=== PATIENT | female | born 1950 | race African-American/Black ===

== ENCOUNTER 2021-05-18 09:52 | Inpatient (IN) | payer MEDICARE, OTHER ==
[~2021-05-18] VITALS: Ht 175.3 cm; Wt 135.2 kg
[2021-05-18] MEDS ORDERED: FERR-20 PO (11:35)
[2021-05-18] MEDS ORDERED: CYCL-839 PO (11:36)
[2021-05-18] MEDS ORDERED: MECL25TA18 PO (11:37)
[2021-05-18] MEDS ORDERED: LORA-622 PO (11:38)
[2021-05-18] MEDS ORDERED: SIMV-8 PO (11:38)
[2021-05-18] MEDS ORDERED: AMLO-489 PO (11:39)
[2021-05-18] MEDS ORDERED: HYDR12.56 PO (11:40)
[2021-05-18] MEDS ORDERED: ERGO2000 PO (11:43)
[2021-05-18] MEDS ORDERED: METH2.5T PO (11:44)
[2021-05-18] MEDS ORDERED: LOSA-69 PO (11:45)
[2021-05-18] MEDS ORDERED: METF-370 PO (11:46)
[2021-05-18] MEDS ORDERED: HYDR-4188 PO (11:47)
[2021-05-18] MEDS ORDERED: LEVO50TA7 PO (11:48)
[2021-05-18] MEDS ORDERED: DICL50TA4 PO (11:49)
[2021-05-18] MEDS ORDERED: ONDANSETRON HCL 4 MG/2 ML VIAL IV ONE (13:15)
[2021-05-18] MEDS ORDERED: HYDROmorphone HCL 2 MG/ML VL IV ONE (13:15)
[2021-05-18 13:33] LABS: Basophils # (auto) 0.1 10 ^3/uL (0-0.2); Basophils % (auto) 0.4 % (0.0-2.0); Eosinophils # (auto) 0 10 ^3/uL (0-0.8); Eosinophils % (auto) 0.1 % (0.0-7.0); Hematocrit 35.9 % (36.0-46.0); Lymphocytes # (auto) 1.1 10 ^3/uL (0.4-5.4); Lymphocytes % (auto) 8.4 % (10.0-50.0); Mean Corpuscular Hemoglobin 29.9 pg (28.0-32.0); Mean Corpuscular Hgb Conc. 33.6 g/dL (32.0-36.0); Mean Corpuscular Volume 89.1 fL (80.0-100.0); Monocytes # (auto) 1.1 10 ^3/uL (0-1.3); Neutrophils # (auto) 10.4 10 ^3/uL (1.6-8.6); Neutrophils % (auto) 82.1 % (37.0-80.0); Red Blood Cells 4.03 10^6/uL (4.0-5.20); Red Cell Distribution Width 16.1 % (11.8-14.3); White Blood Cell 12.7 10^3/uL (4.4-10.8)
[2021-05-18 13:44] LABS: Albumin 2.8 g/dL (3.4-5.0); Calcium 9.4 mg/dL (8.5-10.1)
[2021-05-18 13:52] LABS: BUN/Creatinine Ratio 30.1; Bilirubin, Total 0.8 mg/dL (0.2-1.0); Total Protein 8.6 g/dL (6.4-8.2)
[2021-05-18] MEDS ORDERED: METOPROLOL SUCCINATE XL 50 MG TAB PO ONE (17:00)
[2021-05-18] MEDS ORDERED: ENOXAPARIN SOD 100 MG/1 ML SYRINGE SC ONE (17:00)
[2021-05-18] MEDS ORDERED: cefTRIAXone 1GM/50ML D5W 50 ML IV ONE (17:00)
[2021-05-18] MEDS ORDERED: MORPHINE SULFATE INJECTION 2 MG/ML SYRG IV PRN ×2 (17:00→23:00)
[2021-05-18] MEDS ORDERED: NITROGLYCERIN 0.4 MG SL TAB SL PRN (17:00)
[2021-05-18 18:06] LABS: Urine Bacteria FEW /hpf (None Seen); Urine Blood 3+ /uL (Negative); Urine Specific Gravity 1.018 (1.001-1.035); Urine WBC 12 /hpf (0 - 5)
[2021-05-18 20:00] VITALS: BP 119/58
[2021-05-18] MEDS ORDERED: ACETAMINOPHEN 325 MG TAB PO PRN ×2 (22:00→23:00)
[2021-05-18] MEDS ORDERED: MORPHINE SULFATE INJECTION 2 MG/ML SYRG IM ONE (22:00)
[2021-05-18] MEDS ORDERED: PRED10TA PO (22:04)
[2021-05-18] MEDS ORDERED: MELO1TAB56 PO (22:04)
[2021-05-18] MEDS ORDERED: MORPHINE SULFATE INJECTION 2 MG/ML SYRG IV ONE (22:30)
[2021-05-18 23:00] VITALS: BP 128/58
[2021-05-18] MEDS ORDERED: ALBUTEROL SULF 2.5 MG/0.5ML(0.5%) NEB SOLN NEB ONE (23:00)
[2021-05-18] MEDS ORDERED: MONTELUKAST SODIUM 10 MG TAB PO ONE (23:00)
[2021-05-18] MEDS ORDERED: SUCRALFATE 1 GM/10 ML ORAL SUSP PO ONE (23:00)
[2021-05-18] MEDS ORDERED: IPRATROPIUM BROM 0.5 MG/2.5ML INH SOL NEB ONE (23:00)
[2021-05-18] MEDS ORDERED: LACTULOSE 20Gm/30ML SOLN PO PRN (23:00)
[2021-05-18] MEDS ORDERED: PANTOPRAZOLE 40 MG/10 ML VIAL INJ IV ONE (23:00)
[2021-05-18] MEDS ORDERED: MULTIPLE VITAMINS W/ MINERALS TAB PO ONE (23:00)
[2021-05-18] MEDS ORDERED: DEXTROSE (50%) 50ML SYRG IV PRN (23:00)
[2021-05-18] MEDS ORDERED: LORazepam 0.5 MG TAB PO PRN (23:00)
[2021-05-18] MEDS ORDERED: PROMETHAZINE-DM 5 ML ORAL SYRUP PO PRN (23:00)
[2021-05-18] MEDS ORDERED: HYDROcodone-ACET 5/325MG TAB PO ONE (23:00)
[2021-05-18] MEDS ORDERED: hydrALAZINE HCL 20 MG/ML VL IV PRN (23:00)
[2021-05-18] MEDS ORDERED: DOCUSATE SOD 100 MG CAP PO PRN (23:00)
[2021-05-18] MEDS ORDERED: ONDANSETRON HCL 4 MG/2 ML VIAL IV PRN (23:00)
[2021-05-18] MEDS ORDERED: AZITHROMYCIN 500MG/ 250ML 250 ML IV ONE (23:15)
[2021-05-18] MEDS ORDERED: hydrOXYzine HCL 10 MG TAB PO PRN (23:15)
[2021-05-18] MEDS ORDERED: MECLIZINE HCL 25 MG TAB PO PRN (23:15)
[2021-05-18] MEDS ORDERED: methylPREDNISolone SOD SUCC 125 MG/2 ML VL IV ONE (23:15)
[2021-05-18] MEDS ORDERED: LABETALOL HCL 5 MG/ML 4ML SYRINGE IV PRN (23:15)
[2021-05-18] MEDS: ATORVASTATIN 20 MG TAB PO SCH (23:37)
[2021-05-18] MEDS: SODIUM CHLORIDE 0.9% 1,000 ML IV SCH (23:42)
[2021-05-19 01:08] VITALS: BP 128/58
[2021-05-19 02:24] LABS: Magnesium 2.9 mg/dL (1.6-2.6)
[2021-05-19 02:27] LABS: Phosphorus 4.1 mg/dL (2.5-4.90)
[2021-05-19] MEDS: ALBUTEROL SULF 2.5 MG/0.5ML(0.5%) NEB SOLN NEB PRN ×3 (02:29→22:34)
[2021-05-19] MEDS: IPRATROPIUM BROM 0.5 MG/2.5ML INH SOL NEB SCH ×6 (02:29→22:20)
[2021-05-19 05:00] VITALS: BP 135/65
[2021-05-19 05:27] LABS: Basophils # (auto) 0 10 ^3/uL (0-0.2); Basophils % (auto) 0.2 % (0.0-2.0); Eosinophils # (auto) 0 10 ^3/uL (0-0.8); Eosinophils % (auto) 0.1 % (0.0-7.0); Hematocrit 33.7 % (36.0-46.0); Hemoglobin 11.4 g/dL (12.2-16.2); Lymphocytes # (auto) 0.7 10 ^3/uL (0.4-5.4); Mean Corpuscular Hemoglobin 30.1 pg (28.0-32.0); Mean Corpuscular Hgb Conc. 33.8 g/dL (32.0-36.0); Mean Corpuscular Volume 88.8 fL (80.0-100.0); Monocytes # (auto) 0.3 10 ^3/uL (0-1.3); Monocytes % (auto) 2.8 % (0.0-12.0); Neutrophils # (auto) 9.6 10 ^3/uL (1.6-8.6); Neutrophils % (auto) 89.9 % (37.0-80.0); Nucleated Red Blood Cells % 0.1 %; Red Cell Distribution Width 15.7 % (11.8-14.3); White Blood Cell 10.7 10^3/uL (4.4-10.8)
[2021-05-19] MEDS: methylPREDNISolone SOD SUCC 40 MG/ML VL IV SCH ×3 (05:32→21:07)
[2021-05-19 05:48] LABS: INR 1.19 (0.9-1.15); Partial Thromboplastin Time 36.3 sec (23.6-33.0)
[2021-05-19 05:59] LABS: Cholesterol 183 mg/dL (< 200)
[2021-05-19] MEDS: LEVOTHYROXINE SODIUM 50 MCG TAB PO SCH (06:17)
[2021-05-19] MEDS: SUCRALFATE 1 GM/10 ML ORAL SUSP PO SCH ×2 (06:17→10:57)
[2021-05-19] MEDS: ACCU-CHEK COMFORT CURVE STRIP VI SCH ×4 (06:17→21:08)
[2021-05-19] MEDS: InsuLIN REG 1unit/0.01ml Soln (100units/ml) SC SCH ×4 (06:18→21:19)
[2021-05-19 06:22] LABS: CRP High Sensitivity > 19.0 mg/dL (< 0.3); Chloride 108 mmol/L (98-107); Potassium 4.2 mmol/L (3.5-5.1); Sodium 138 mmol/L (136-145)
[2021-05-19 06:23] LABS: Alanine Aminotransferase 62 U/L (13-56); Alkaline Phosphatase 180 U/L (45-117); Anion Gap 8 (5-15); Aspartate Aminotransferase 56 U/L (15-37); BUN/Creatinine Ratio 33.1; Blood Urea Nitrogen 46 mg/dL (7-18); Carbon Dioxide 22 mmol/L (21-32); GFR African American 48 mL/min; GFR Non-African American 40 mL/min; Glucose 120 mg/dL (74-106)
[2021-05-19 06:24] LABS: Albumin 2.4 g/dL (3.4-5.0); Bilirubin, Total 0.9 mg/dL (0.2-1.0); Calcium 9.2 mg/dL (8.5-10.1); HDL Cholesterol 26 mg/dL (40-59); LDL Cholesterol 116 mg/dL (< 100); Magnesium 3.2 mg/dL (1.6-2.6); Phosphorus 4.1 mg/dL (2.5-4.90); Total Protein 7.5 g/dL (6.4-8.2); Triglycerides 152 mg/dL (< 150)
[2021-05-19 06:25] LABS: Lipase 82 U/L (73-393)
[2021-05-19] MEDS: ACETYLCYSTEINE 10 %(100MG/ML) SOL 4ML NEB SCH ×3 (07:08→22:20)
[2021-05-19] MEDS ORDERED: CALCIUM W/VIT D (600MG/400IU) TAB PO SCH (08:00)
[2021-05-19 08:59] VITALS: BP 134/56
[2021-05-19] MEDS: FERROUS SULFATE 325mg EC TAB PO SCH ×3 (09:04→17:19)
[2021-05-19] MEDS: PANTOPRAZOLE 40 MG/10 ML VIAL INJ IV SCH (09:04)
[2021-05-19] MEDS: cefTRIAXone 1GM/50ML D5W 50 ML IV SCH (09:04)
[2021-05-19] MEDS: ASPirin 81 mg TAB PO SCH (09:04)
[2021-05-19] MEDS ORDERED: CHOLECALCIFEROL (VITD3) 2,000 UNIT CAP/TAB PO SCH (10:00)
[2021-05-19] MEDS ORDERED: MULTIPLE VITAMINS W/ MINERALS TAB PO SCH (10:00)
[2021-05-19] MEDS ORDERED: FOLIC ACID 1 MG TAB PO SCH (10:00)
[2021-05-19] MEDS ORDERED: ENOXAPARIN SOD 40 MG/0.4 ML SYRINGE SC SCH (10:00)
[2021-05-19] MEDS ORDERED: AZITHROMYCIN 500MG/ 250ML 250 ML IV SCH (10:00)
[2021-05-19] MEDS ORDERED: CYANOCOBALAMIN 500 MCG TAB PO SCH (10:00)
[2021-05-19 12:15] LABS: Hepatitis A Ab IgM Negative; Hepatitis B Core IgM Negative; Hepatitis C Antibody Negative (Negative)
[2021-05-19] MEDS ORDERED: LORazepam 2MG/ML-1ML VIAL IM ONE (12:30)
[2021-05-19 12:48] VITALS: BP 110/51
[2021-05-19] MEDS: SODIUM CHLORIDE 0.9% 1,000 ML IV SCH (15:40)
[2021-05-19] MEDS ORDERED: IOHEXOL 350 MG/ML 100ML IJ ONE (15:42)
[2021-05-19 15:51] LABS: Alcohol, Urine < 3.0 mg/dL (0-10); Amphetamine Screen, Urine NEGATIVE (NEGATIVE); Barbiturate Scree,Urine NEGATIVE (NEGATIVE); Benzodiazephine Screen, Urine NEGATIVE (NEGATIVE); Cannabinoid Screen, Urine NEGATIVE (NEGATIVE); Cocaine Screen, Urine NEGATIVE (NEGATIVE); Opiate Scree,Urine POSITIVE (NEGATIVE); Phencyclidine Screen, Urine NEGATIVE (NEGATIVE)
[2021-05-19 17:00] VITALS: BP 131/50
[2021-05-19] MEDS ORDERED: ENOXAPARIN SOD 100 MG/1 ML SYRINGE SC ONE (17:00)
[2021-05-19] MEDS: ATORVASTATIN 20 MG TAB PO SCH (21:08)
[2021-05-19] MEDS: MONTELUKAST SODIUM 10 MG TAB PO SCH (21:08)
[2021-05-19 22:00] VITALS: BP 127/58
[2021-05-20] MEDS: IPRATROPIUM BROM 0.5 MG/2.5ML INH SOL NEB SCH ×6 (02:00→22:00)
[2021-05-20] MEDS: ALBUTEROL SULF 2.5 MG/0.5ML(0.5%) NEB SOLN NEB PRN ×2 (02:21→19:35)
[2021-05-20] MEDS: ENOXAPARIN SOD 30 MG/0.3 ML SYRINGE SC SCH ×2 (04:36→17:27)
[2021-05-20] MEDS: ENOXAPARIN SOD 100 MG/1 ML SYRINGE SC SCH ×2 (04:37→17:28)
[2021-05-20 05:00] VITALS: BP 128/66
[2021-05-20] MEDS: methylPREDNISolone SOD SUCC 40 MG/ML VL IV SCH ×3 (05:34→22:20)
[2021-05-20] MEDS: SODIUM CHLORIDE 0.9% 1,000 ML IV SCH (05:51)
[2021-05-20] MEDS: LEVOTHYROXINE SODIUM 50 MCG TAB PO SCH (06:10)
[2021-05-20] MEDS: ACCU-CHEK COMFORT CURVE STRIP VI SCH ×4 (06:10→22:21)
[2021-05-20] MEDS: InsuLIN REG 1unit/0.01ml Soln (100units/ml) SC SCH ×4 (06:11→22:00)
[2021-05-20] MEDS: ACETYLCYSTEINE 10 %(100MG/ML) SOL 4ML NEB SCH ×3 (06:20→19:35)
[2021-05-20] MEDS: FERROUS SULFATE 325mg EC TAB PO SCH ×3 (08:16→17:28)
[2021-05-20 09:00] VITALS: BP 147/65
[2021-05-20] MEDS: cefTRIAXone 1GM/50ML D5W 50 ML IV SCH (09:20)
[2021-05-20] MEDS: PANTOPRAZOLE 40 MG/10 ML VIAL INJ IV SCH (10:20)
[2021-05-20] MEDS: ASPirin 81 mg TAB PO SCH (10:23)
[2021-05-20 13:00] VITALS: BP 152/72
[2021-05-20 17:00] VITALS: BP 115/56
[2021-05-20] MEDS ORDERED: LORazepam 2MG/ML-1ML VIAL IV PRN (21:30)
[2021-05-20 22:00] VITALS: BP 149/82
[2021-05-20] MEDS: ATORVASTATIN 20 MG TAB PO SCH (22:20)
[2021-05-20] MEDS: MONTELUKAST SODIUM 10 MG TAB PO SCH (22:20)
[2021-05-21] MEDS: SODIUM CHLORIDE 0.9% 1,000 ML IV SCH ×2 (01:00→18:37)
[2021-05-21] MEDS: IPRATROPIUM BROM 0.5 MG/2.5ML INH SOL NEB SCH ×5 (02:00→21:28)
[2021-05-21 05:44] VITALS: BP 156/73
[2021-05-21] MEDS: ENOXAPARIN SOD 100 MG/1 ML SYRINGE SC SCH ×2 (06:00→17:20)
[2021-05-21] MEDS: ENOXAPARIN SOD 30 MG/0.3 ML SYRINGE SC SCH ×2 (06:00→17:20)
[2021-05-21] MEDS: methylPREDNISolone SOD SUCC 40 MG/ML VL IV SCH ×3 (06:15→22:01)
[2021-05-21] MEDS: InsuLIN REG 1unit/0.01ml Soln (100units/ml) SC SCH ×4 (07:00→22:10)
[2021-05-21] MEDS: LEVOTHYROXINE SODIUM 50 MCG TAB PO SCH (07:23)
[2021-05-21] MEDS: ACCU-CHEK COMFORT CURVE STRIP VI SCH ×4 (07:23→22:03)
[2021-05-21 09:00] VITALS: BP 146/59
[2021-05-21] MEDS: FERROUS SULFATE 325mg EC TAB PO SCH ×3 (09:17→17:22)
[2021-05-21] MEDS: PANTOPRAZOLE 40 MG/10 ML VIAL INJ IV SCH (09:17)
[2021-05-21] MEDS: cefTRIAXone 1GM/50ML D5W 50 ML IV SCH (09:17)
[2021-05-21] MEDS: ASPirin 81 mg TAB PO SCH (09:18)
[2021-05-21 13:00] VITALS: BP 148/59
[2021-05-21] MEDS: ALBUTEROL SULF 2.5 MG/0.5ML(0.5%) NEB SOLN NEB PRN (13:33)
[2021-05-21 16:44] VITALS: BP 150/66
[2021-05-21 22:00] VITALS: BP 139/61
[2021-05-21] MEDS: ATORVASTATIN 20 MG TAB PO SCH (22:03)
[2021-05-21] MEDS: MONTELUKAST SODIUM 10 MG TAB PO SCH (22:03)
[2021-05-21] MEDS ORDERED: LORazepam 2MG/ML-1ML VIAL IV PRN (23:30)
[2021-05-22] VITALS (7 sets, daily range): BP systolic 119–147; BP diastolic 53–88
[2021-05-22] MEDS: ENOXAPARIN SOD 100 MG/1 ML SYRINGE SC SCH ×2 (05:09→18:15)
[2021-05-22] MEDS: ENOXAPARIN SOD 30 MG/0.3 ML SYRINGE SC SCH ×2 (05:09→18:15)
[2021-05-22] MEDS: ALBUTEROL SULF 2.5 MG/0.5ML(0.5%) NEB SOLN NEB PRN ×3 (05:48→21:19)
[2021-05-22] MEDS: IPRATROPIUM BROM 0.5 MG/2.5ML INH SOL NEB SCH ×3 (05:48→21:19)
[2021-05-22] MEDS: methylPREDNISolone SOD SUCC 40 MG/ML VL IV SCH ×3 (06:03→22:00)
[2021-05-22] MEDS: ACCU-CHEK COMFORT CURVE STRIP VI SCH ×4 (06:51→22:00)
[2021-05-22] MEDS: LEVOTHYROXINE SODIUM 50 MCG TAB PO SCH (06:51)
[2021-05-22] MEDS: InsuLIN REG 1unit/0.01ml Soln (100units/ml) SC SCH ×4 (07:00→22:24)
[2021-05-22] MEDS: FERROUS SULFATE 325mg EC TAB PO SCH ×3 (08:36→18:16)
[2021-05-22] MEDS: ASPirin 81 mg TAB PO SCH (08:37)
[2021-05-22] MEDS: PANTOPRAZOLE 40 MG/10 ML VIAL INJ IV SCH (08:37)
[2021-05-22] MEDS: cefTRIAXone 1GM/50ML D5W 50 ML IV SCH (08:37)
[2021-05-22] MEDS: SODIUM CHLORIDE 0.9% 1,000 ML IV SCH (08:55)
[2021-05-22] MEDS: MONTELUKAST SODIUM 10 MG TAB PO SCH (22:00)
[2021-05-22] MEDS: ATORVASTATIN 20 MG TAB PO SCH (22:00)
[2021-05-23] MEDS: SODIUM CHLORIDE 0.9% 1,000 ML IV SCH ×2 (03:00→20:00)
[2021-05-23 05:00] VITALS: BP 148/79
[2021-05-23] MEDS: ENOXAPARIN SOD 100 MG/1 ML SYRINGE SC SCH ×2 (05:03→17:00)
[2021-05-23] MEDS: ENOXAPARIN SOD 30 MG/0.3 ML SYRINGE SC SCH ×2 (05:04→17:00)
[2021-05-23] MEDS: methylPREDNISolone SOD SUCC 40 MG/ML VL IV SCH ×3 (06:00→22:00)
[2021-05-23] MEDS: ALBUTEROL SULF 2.5 MG/0.5ML(0.5%) NEB SOLN NEB PRN ×3 (06:03→18:15)
[2021-05-23] MEDS: IPRATROPIUM BROM 0.5 MG/2.5ML INH SOL NEB SCH ×4 (06:03→18:15)
[2021-05-23] MEDS: LEVOTHYROXINE SODIUM 50 MCG TAB PO SCH (06:34)
[2021-05-23] MEDS: InsuLIN REG 1unit/0.01ml Soln (100units/ml) SC SCH ×4 (07:00→22:00)
[2021-05-23] MEDS: ACCU-CHEK COMFORT CURVE STRIP VI SCH ×4 (07:00→22:07)
[2021-05-23 08:00] VITALS: BP 136/62
[2021-05-23] MEDS: FERROUS SULFATE 325mg EC TAB PO SCH ×3 (08:00→17:42)
[2021-05-23] MEDS: PANTOPRAZOLE 40 MG/10 ML VIAL INJ IV SCH (09:27)
[2021-05-23] MEDS: cefTRIAXone 1GM/50ML D5W 50 ML IV SCH (09:27)
[2021-05-23] MEDS: ASPirin 81 mg TAB PO SCH (09:27)
[2021-05-23 12:00] VITALS: BP 158/91
[2021-05-23] MEDS: HYDROcodone-ACET 5/325MG TAB PO PRN (14:11)
[2021-05-23 16:00] VITALS: BP 132/54
[2021-05-23 22:00] VITALS: BP 139/72
[2021-05-23] MEDS: ATORVASTATIN 20 MG TAB PO SCH (22:00)
[2021-05-23] MEDS: MONTELUKAST SODIUM 10 MG TAB PO SCH (22:00)
[2021-05-24 05:00] VITALS: BP 148/65
[2021-05-24] MEDS: ENOXAPARIN SOD 30 MG/0.3 ML SYRINGE SC SCH ×2 (05:27→18:03)
[2021-05-24] MEDS: ENOXAPARIN SOD 100 MG/1 ML SYRINGE SC SCH ×2 (05:27→18:03)
[2021-05-24] MEDS: methylPREDNISolone SOD SUCC 40 MG/ML VL IV SCH ×3 (06:00→21:58)
[2021-05-24] MEDS: ALBUTEROL SULF 2.5 MG/0.5ML(0.5%) NEB SOLN NEB PRN (06:18)
[2021-05-24] MEDS: IPRATROPIUM BROM 0.5 MG/2.5ML INH SOL NEB SCH ×3 (06:18→22:00)
[2021-05-24] MEDS: ACCU-CHEK COMFORT CURVE STRIP VI SCH ×4 (07:00→21:27)
[2021-05-24] MEDS: InsuLIN REG 1unit/0.01ml Soln (100units/ml) SC SCH ×4 (07:00→21:58)
[2021-05-24] MEDS: LEVOTHYROXINE SODIUM 50 MCG TAB PO SCH (07:00)
[2021-05-24 08:00] VITALS: BP 145/61
[2021-05-24] MEDS: FERROUS SULFATE 325mg EC TAB PO SCH ×3 (09:19→18:02)
[2021-05-24] MEDS: PANTOPRAZOLE 40 MG/10 ML VIAL INJ IV SCH (09:19)
[2021-05-24] MEDS: cefTRIAXone 1GM/50ML D5W 50 ML IV SCH (09:19)
[2021-05-24] MEDS: ASPirin 81 mg TAB PO SCH (09:20)
[2021-05-24 12:00] VITALS: BP 127/70
[2021-05-24] MEDS: SODIUM CHLORIDE 0.9% 1,000 ML IV SCH (12:36)
[2021-05-24] MEDS: HYDROcodone-ACET 5/325MG TAB PO PRN (14:01)
[2021-05-24 16:00] VITALS: BP 129/63
[2021-05-24] MEDS: ATORVASTATIN 20 MG TAB PO SCH (21:58)
[2021-05-24] MEDS: MONTELUKAST SODIUM 10 MG TAB PO SCH (21:59)
[2021-05-24 22:00] VITALS: BP 130/61
[2021-05-24 23:54] VITALS: BP 130/61
[2021-05-25 05:00] VITALS: BP 125/60
[2021-05-25 05:37] LABS: Hematocrit 26.3 % (36.0-46.0); Hemoglobin 8.5 g/dL (12.2-16.2); Mean Corpuscular Hgb Conc. 32.4 g/dL (32.0-36.0); Mean Corpuscular Volume 89.5 fL (80.0-100.0); Red Blood Cells 2.93 10^6/uL (4.0-5.20); White Blood Cell 20.7 10^3/uL (4.4-10.8)
[2021-05-25 05:46] LABS: Basophils % (manual) 0 (0.0-2.0); Blast Cells 0; Eosinophils % (manual) 0 (0-7); Myelocytes % 0; Promyelocytes % 0; Reactive Lymphocytes 0
[2021-05-25 05:53] LABS: BUN/Creatinine Ratio 32.5; Calcium 8.1 mg/dL (8.5-10.1); Potassium 4.9 mmol/L (3.5-5.1)
[2021-05-25] MEDS: ENOXAPARIN SOD 100 MG/1 ML SYRINGE SC SCH (06:02)
[2021-05-25] MEDS: methylPREDNISolone SOD SUCC 40 MG/ML VL IV SCH ×2 (06:02→14:50)
[2021-05-25] MEDS: ENOXAPARIN SOD 30 MG/0.3 ML SYRINGE SC SCH (06:02)
[2021-05-25] MEDS: ACCU-CHEK COMFORT CURVE STRIP VI SCH ×2 (06:03→11:30)
[2021-05-25] MEDS: LEVOTHYROXINE SODIUM 50 MCG TAB PO SCH (06:03)
[2021-05-25] MEDS: InsuLIN REG 1unit/0.01ml Soln (100units/ml) SC SCH ×2 (06:19→11:30)
[2021-05-25] MEDS: SODIUM CHLORIDE 0.9% 1,000 ML IV SCH (06:20)
[2021-05-25] MEDS: IPRATROPIUM BROM 0.5 MG/2.5ML INH SOL NEB SCH (07:09)
[2021-05-25 08:49] VITALS: BP 146/56
[2021-05-25] MEDS: FERROUS SULFATE 325mg EC TAB PO SCH ×2 (09:29→14:49)
[2021-05-25] MEDS: ASPirin 81 mg TAB PO SCH (09:30)
[2021-05-25] MEDS: cefTRIAXone 1GM/50ML D5W 50 ML IV SCH (09:30)
[2021-05-25] MEDS ORDERED: LEVO500T31 PO (09:47)
[2021-05-25] MEDS ORDERED: APIX5TAB PO (09:47)
[2021-05-25] MEDS ORDERED: PANTOPRAZOLE 40 MG TAB PO SCH (10:00)
[2021-05-25] MEDS ORDERED: APIXABAN 5 MG TAB PO SCH (10:00)
[2021-05-25 10:15] LABS: Band Neutrophils % (manual) 5; Lymphocytes % (manual) 12 (10.0-50.0); Metamyelocytes % 1; Monocytes % (manual) 6 (0-12)
[2021-05-25 12:41] VITALS: BP 128/81
[2021-06-01] MEDS ORDERED: APIXABAN 5 MG TAB PO SCH (10:00)
== END 2021-05-25 17:30 | disposition home health service (06) | DRG 871 ==
LOC: ER 09:52 → EDBD 09:52 → TELE-CENTR 19:39
PROVIDERS: ADMIT Hospitalist; ATTEND Family Medicine
DX: A41.9 Sepsis, unspecified organism (principal); J18.9 Pneumonia, unspecified organism; J96.20 Acute and chronic respiratory failure, unspecified whether with hypoxia or hypercapnia; I26.99 Other pulmonary embolism without acute cor pulmonale; N39.0 Urinary tract infection, site not specified; J44.1 Chronic obstructive pulmonary disease with (acute) exacerbation; B17.9 Acute viral hepatitis, unspecified; F11.20 Opioid dependence, uncomplicated; N17.9 Acute kidney failure, unspecified; E66.2 Morbid (severe) obesity with alveolar hypoventilation; I13.0 Hypertensive heart and chronic kidney disease with heart failure and stage 1 through stage 4 chronic kidney disease, or unspecified chronic kidney disease; J44.0 Chronic obstructive pulmonary disease with (acute) lower respiratory infection; M06.9 Rheumatoid arthritis, unspecified; R29.6 Repeated falls; M17.0 Bilateral primary osteoarthritis of knee; K75.81 Nonalcoholic steatohepatitis (NASH); K21.9 Gastro-esophageal reflux disease without esophagitis; K42.9 Umbilical hernia without obstruction or gangrene; N18.32 Chronic kidney disease, stage 3b; J32.9 Chronic sinusitis, unspecified; G89.4 Chronic pain syndrome; F01.50 Vascular dementia, unspecified severity, without behavioral disturbance, psychotic disturbance, mood disturbance, and anxiety; E88.09 Other disorders of plasma-protein metabolism, not elsewhere classified; D64.9 Anemia, unspecified; E03.9 Hypothyroidism, unspecified; E11.22 Type 2 diabetes mellitus with diabetic chronic kidney disease; F17.200 Nicotine dependence, unspecified, uncomplicated; E78.5 Hyperlipidemia, unspecified; I25.10 Atherosclerotic heart disease of native coronary artery without angina pectoris; M54.2 Cervicalgia; Z20.822 Contact with and (suspected) exposure to COVID-19; I27.29 Other secondary pulmonary hypertension; I50.810 Right heart failure, unspecified; R55 Syncope and collapse; M54.18 Radiculopathy, sacral and sacrococcygeal region; R32 Unspecified urinary incontinence; Z79.84 Long term (current) use of oral hypoglycemic drugs; Z68.31 Body mass index [BMI] 31.0-31.9, adult; Z82.49 Family history of ischemic heart disease and other diseases of the circulatory system; Z86.711 Personal history of pulmonary embolism; Z79.899 Other long term (current) drug therapy
CPT/HCPCS: 36415; 70450; 70551; 71045; 71275; 72148; 73562; 73700; 74176; 76705; 80048; 80053; 80061; 80074; 80307; 81001; 82728; 82962; 83036; 83615; 83690; 83735; 83880; 84100; 84443; 84484; 84550; 85007; 85025; 85027; 85379; 85610; 85652; 85730; 86141; 87040; 87081; 87086; 93005; 93306; 93886; 93970; 94640; 95819; 96372; 96374; 96375; 97110; 97116; 97163; 97530; C9113; G0378; J0696; J1815; J2405